=== PATIENT | female | born 1935 | race Caucasian/White ===

== ENCOUNTER 2017-10-22 07:05 | Inpatient (IN) | payer OTHER, MEDICARE ==
[~2017-10-22] VITALS: Ht 162.6 cm; Wt 49.1 kg
[~2017-10-22 07:05] MED LIST: ADVAIR 250-501 EACH INH; AFRIN15 ML NASB; CALCIUM CARBON500 M2 PO; CARVEDILOL25 M1 PO; CLOPIDOGREL75 M1 PO; DIFLUCAN150 M1 PO; ESCITALOPRAM OX10 MG PO; FERROUS SULFAT325 M3 PO; HYDRALAZINE HCL25 M1 PO; IPRAT-ALBUT 0.5-3 ML PO; OXYCODONE HCL5 M1 PO; PANTOPRAZOLE SO40 M1 PO; RANEXA500 M1 PO; SENNA PLUS TAB1 EACH PO; VITAMIN B-121000 MC3 PO; VITAMIN D5000 UNIT PO
--- NOTE | 2017-10-22 07:15 | ED GENERAL ADULT ---
History of Present Illness General Chief Complaint: Dyspnea (COPD, CHF, Other) Stated Complaint: SOB SINCE LAST PM Source: patient, family Exam Limitations: no limitations Vital Signs & Intake/Output Vital Signs & Intake/Output Vital Signs Date Time Temp Pulse Resp B/P B/P Pulse O2 O2 Flow FiO2 Mean Ox Delivery Rate 10/22 1832 65 144/88 10/22 1546 62 190/88 10/22 1426 98.4 62 18 190/88 96 Nasal Cannula 10/22 1400 95 Nasal 2.0L Cannula 10/22 1315 99.2 74 18 180/92 96 Nasal 2.0L Cannula 10/22 1200 99.9 70 20 168/90 94 Nasal 2.0L Cannula 10/22 1032 99.9 69 22 158/82 95 Nasal 2.0L Cannula 10/22 0911 98.0 74 20 143/90 95 10/22 0759 Nasal 2.0L Cannula 10/22 0755 99.0 70 160/84 10/22 0755 97 Room Air Room Air The patient was placed on a monitor and oxygen. An albuterol Atrovent nebulizer ordered. Chest x-ray and labs were ordered. EKG shows paced beats. Her mail clerk is Dr. Solomon. Her primary care doctor is Dr. Rojo. Her vascular surgeon is Dr. Whitley. Allergies Coded Allergies: amoxicillin (Mild, NAUSEA, ABDOMINAL PAIN 11/18/15) Reconcile Medications Carvedilol 25 MG TABLET 1 TAB PO BID HEART (Reported) Cholecalciferol (Vitamin D3) (Vitamin D) 5,000 UNIT TABLET 1 TAB PO DAILY SUPPLEMENT (Reported) Clopidogrel Bisulfate (Clopidogrel) 75 MG TABLET 1 TAB PO QPM BLOOD THINNER ( Reported) Cyanocobalamin (Vitamin B-12) 1,000 MCG TABLET 1 TAB PO DAILY SUPPLEMENT ( Reported) Escitalopram Oxalate 10 MG TABLET 1 TAB PO DAILY MENTAL HEALTH (Reported) Ferrous Sulfate 325 MG (65 MG IRON) TABLET 1 TAB PO BID IRON, VITAMIN ( Reported) Fluticasone/Salmeterol (Advair 250-50 Diskus) 1 EACH BLST.W.DEV 1 PUF INH BID BREATHING PROBLEMS (Reported) Hydralazine HCl 25 MG TABLET 3 TAB PO BID HEART (Reported) Mirtazapine 7.5 MG TABLET 1 TAB PO QPM SLEEP (Reported) Pantoprazole Sodium 40 MG TABLET.DR 1 TAB PO DAILY GI (Reported) Ranolazine (Ranexa) 500 MG TAB.ER.12H 1 TAB PO 1700 CHEST PAIN (Reported) Simvastatin (Simvastatin*) 40 MG TABLET 1 TAB PO QPM CHOLESTEROL (Reported) Triage Note: C/O SOB SINCE LAST PM, Triage Nurses Notes Reviewed? yes Onset: Abrupt Duration: hour(s): Timing: recent history HPI: 10/22/17 7:30 AM 82-year-old female presents to the emergency department complaining of difficulty breathing. According to the patient she was in her usual state of health until last night when she developed progressive shortness of breath. She also admits to mild chest pain and occasional cough. No fever. She does admit to orthopnea. She did use her albuterol nebulizer this morning with little relief. Past History Travel History Traveled to [place] past 21 day No Medical History Any Pertinent Medical History? see below for history Neurological: intracranial bleed Cardiovascular: CAD, myocardial infarction Other Medical Hx: chronic pain Surgical History Surgical History: pacemaker Psychosocial History Who do you live with Significant Other What is your primary language Guamanian Tobacco Use: Current Daily Use Daily Tobacco Use Amount/Type: =< 4 Cigarettes daily ETOH Use: occasional use Family History Hx Contributory? No Review of Systems Review of Systems Constitutional: Denies: fever. EENTM: Reports: no symptoms. Respiratory: Reports: cough, short of breath. Cardiovascular: Reports: chest pain. GI: Denies: abdominal pain. Genitourinary: Reports: no symptoms. Musculoskeletal: Reports: joint pain. Skin: Reports: no symptoms. Neurological/Psychological: Reports: no symptoms. Hematologic/Endocrine: Reports: no symptoms. Immunologic/Allergic: Reports: no symptoms. Physical Exam Physical Exam General Appearance: alert, awake, anxious, moderate distress Head: atraumatic, normal appearance Eyes: Bilateral: normal appearance, PERRL, EOMI. Ears, Nose, Throat: normal ENT inspection Neck: normal inspection Respiratory: decreased breath sounds Cardiovascular: oCCASIONAL IRREGULAR BEATS Peripheral Pulses: 4+ radial (R), 4+ radial (L) Gastrointestinal: non-tender Back: decreased range of motion Extremities: no edema Neurologic/Psych: no motor/sensory deficits, awake, alert, oriented x 3 Skin: intact, normal color, warm/dry Core Measures ACS in differential dx? Yes CVA/TIA Diagnosis: No Sepsis Present: No Sepsis Focused Exam Completed? No Progress Differential Diagnoses I considered the following diagnoses in my evaluation of the patient: [Acute coronary syndrome, congestive heart failure, pneumonia, peripheral vascular disease, pulmonary embolism, COPD exacerbation, pulmonary hypertension] Plan of Care: Orders Procedure Date/time Status Heart Healthy Diet 10/22 L Complete Heart Healthy Diet 10/22 D Active TROPONIN LEVEL 10/22 1800 Active EKG 10/22 1800 Active CULTURE,URINE 10/22 1643 Active URINALYSIS 10/22 1642 Complete Weight 10/22 1352 Active Vital Signs 10/22 1352 Active Teach/Educate 10/22 1352 Active Pain Treatment and Response 10/22 1352 Active Nutritional Intake, Monitor 10/22 1352 Active Isolation 10/22 1352 Active Intake & Output 10/22 1352 Active Patient Care Conference 10/22 1352 Active Activity/Ambulation 10/22 1352 Active Pathway - chart 10/22 1254 Active TRC EVALUATION (GEN) 10/22 1244 Active OXYGEN SETUP (GEN) 10/22 1244 Active Pathway - chart 10/22 1244 Active House Staff 10/22 1244 Active Code Status 10/22 1244 Active THYROID STIMULATING HORMONE 10/22 1109 Complete FREE T4 10/22 1109 Complete TROPONIN LEVEL 10/22 1100 Complete EKG 10/22 1100 Active Patient Data 10/22 1058 Active ED Holding Orders 10/22 1053 Active Admit to inpatient 10/22 1053 Active Vital Signs 10/22 1053 Active Code Status 10/22 1053 Complete Saline Lock 10/22 0833 Active OXYGEN SETUP (GEN) 10/22 0744 Active MISTAKE 10/22 0744 Active TROPONIN LEVEL 10/22 0730 Complete D-DIMER 10/22 0730 Complete COMPREHENSIVE METABOLIC PANEL 10/22 0730 Complete CBC WITHOUT DIFFERENTIAL 10/22 0730 Complete B-TYPE NATRIURETIC PEP (BNP) 10/22 0730 Complete EKG 10/22 0718 Active Lab Add-on Test 10/22 UNK Active VTE Mechanical Prophylaxis 10/22 UNK Active Straight Cath 10/22 UNK Active Intake & Output 10/22 UNK Active Dean, Insertion/Removal/Asses 10/22 UNK Complete Elevate 10/22 UNK Active Current Medications Sig/Bhupendra Start time Last Medication Dose Stop Time Status Admin Carvedilol 12.5 MG BID 10/22 2100 AC (Coreg) Clopidogrel Bisulfate 75 MG QPM 10/22 2100 AC (Plavix) Hydralazine HCl 75 MG BID 10/22 2100 AC (Apresoline) Mirtazapine 7.5 MG QPM 10/22 2100 AC (Remeron) Atorvastatin Calcium 20 MG 1700 10/22 1700 AC 10/22 (Lipitor) 1546 Ranolazine 500 MG 1700 10/22 1700 AC 10/22 (Ranexa) 1546 Furosemide 20 MG DAILY 10/22 1329 AC 10/22 (Lasix) 1540 Acetaminophen 650 MG Q6P PRN 10/22 1300 AC (Tylenol) Acetaminophen 1,000 MG Q6P PRN 10/22 1300 AC (Ofirmev) Morphine Sulfate 1 MG Q2P PRN 10/22 1300 AC (Morphine) Enoxaparin Sodium 40 MG DAILY 10/22 1244 AC 10/22 (Lovenox) 1312 Budesonide/ 2 PUF BID 10/22 1239 AC 10/22 Formoterol Fumarate 1540 (Symbicort) Escitalopram Oxalate 10 MG DAILY 10/22 1239 AC 10/22 (Lexapro) 1540 Laboratory Tests 10/22/17 1845: Troponin I Pending 10/22/17 1650: Urine Color YEL, Urine Clarity HAZY H, Urine pH 6.0, Ur Specific Brogue 1.015, Urine Protein 100 H, Urine Ketones NEG, Urine Nitrite NEG, Urine Bilirubin NEG, Urine Urobilinogen 0.2, Ur Leukocyte Esterase TRACE H, Ur Microscopic SEDIMENT EXAMINED, Urine WBC 15-25 H, Ur Epithelial Cells FEW, Urine Bacteria MANY H, Urine Hemoglobin NEG, Urine Glucose NEG 10/22/17 1109: Troponin I 0.07, TSH 1.380, Free T4 1.51 10/22/17 0749: Anion Gap 12, Estimated GFR 53 L, BUN/Creatinine Ratio 25.0, Glucose 91, Calcium 8.9, Total Bilirubin 0.8, AST 20, ALT 17, Alkaline Phosphatase 64, Troponin I 0.08, Ssn-C-Hirgpunyriv Pept 23928 H, Total Protein 6.4, Albumin 3.3 L, Globulin 3.1, Albumin/Globulin Ratio 1.1, D-Dimer High Sensitivty 3520 H, CBC w Diff NO MAN DIFF REQ, RBC 3.38 L, MCV 94.8, MCH 32.8 H, MCHC 34.6, RDW 13.7, MPV 7.9, Gran % 82.5 H, Lymphocytes % 11.9 L, Monocytes % 4.7, Eosinophils % 0.4, Basophils % 0.5, Absolute Granulocytes 5.2, Absolute Lymphocytes 0.8 L, Absolute Monocytes 0.3, Absolute Eosinophils 0, Absolute Basophils 0 Microbiology 10/22 1650 URINE ROUT: Urine Culture - RECD CXR Impression: pulmonary vascular congestion Initial ED EKG: pacemaker rhythm Departure Departure Disposition: STILL A PATIENT Condition: Stable Clinical Impression Primary Impression: Dyspnea Secondary Impressions: CHF (congestive heart failure) Referrals: Robbi Rojo MD (PCP/Family) Departure Forms: Customer Survey General Discharge Information Admission Note Spoke With: Marley Hendrix MD Documentation of Exam: Documentation of any treatments & extenuating circumstances including Concerns Regarding Discharge (functional status, medication knowledge or non-compliance, living conditions, etc.) that warrant an admission rather than observation: [The patient needs admission for IV diuresis, oxygen, serial troponins, cardiology consultation] Critical Care Note Critical Care Note Critical Care Time: non-applicable
[2017-10-22 08:17] LABS: ABSOLUTE BASOPHIL COUNT 0 /CUMM (0.0-0.2); ABSOLUTE EOSINOPHIL COUNT 0 /CUMM (0.0-0.7); ABSOLUTE GRANULOCYTE CT 5.2 /CUMM (1.4-6.5); ABSOLUTE LYMPH COUNT 0.8 /CUMM (1.2-3.4); ABSOLUTE MONOCYTE COUNT 0.3 /CUMM (0.10-0.60); BASOPHIL % 0.5 % (0.0-2.0); EOSINOPHIL % 0.4 % (0-5); MEAN CORPUSCULAR HGB 32.8 PG (27.0-31.0); MEAN CORPUSCULAR HGB CONC 34.6 G/DL (33.0-37.0); MEAN CORPUSCULAR VOLUME 94.8 FL (81.0-99.0); MEAN PLATELET VOLUME 7.9 FL (7.4-10.4); RBC DISTRIBUTION WIDTH 13.7 % (11.5-14.5); RED BLOOD CELL CT 3.38 /CUMM (4.20-5.40); WHITE BLOOD CELL COUNT 6.3 /CUMM (4.8-10.8)
--- NOTE | 2017-10-22 08:30 | RADIOLOGY REPORT ---
EXAMINATION: XR PORTABLE CHEST CLINICAL INFORMATION: Shortness of breath. COMPARISON: 12/16/2010 TECHNIQUE: Portable frontal view of the chest was obtained. Cardiac silhouette and left lung base are obscured by the patient's left wrist and hand. FINDINGS: Dual-lead pacemaker is unchanged. Sternal wires and surgical clips overlie the cardiac and mediastinal contours. Cardiac silhouette is enlarged. Mild pulmonary venous congestion. No focal consolidation is identified. No pleural effusion or pneumothorax. Evaluation of the left lung base is obscured by the overlying hand and wrist. Bones are osteopenic. Degenerative arthritis is present at the acromioclavicular and right glenohumeral joints. Degenerative disc disease present in the thoracolumbar spine. IVC filter is noted in the right mid abdomen. Kyphoplasty cement is present in the lumbar spine. IMPRESSION: Borderline cardiomegaly with mild pulmonary venous congestion. No focal consolidation, though assessment of the left lung base is limited by the overlying left hand and wrist. Consider follow-up nonportable PA and lateral radiographs when able.
[2017-10-22 08:38] LABS: GRANULOCYTE % 82.5 % (42.2-75.2); PLATELET COUNT 109 /CUMM (130-400)
[2017-10-22] MEDS ORDERED: MIRTAZAPINE7.5 M1 PO (08:53)
[2017-10-22] MEDS ORDERED: SIMVASTATIN40 M1 PO (08:53)
--- NOTE | 2017-10-22 11:51 | CT SCAN REPORT ---
EXAMINATION: CT ANGIOGRAM OF THE CHEST WITH AND WITHOUT CONTRAST (CT PULMONARY ANGIOGRAM FOR PE) CLINICAL INFORMATION: Presumptive Dx: SOB Signs Symptoms: SOB COMPARISON: Radiographs from the same date and CT abdomen pelvis dated 12/16/2010 TECHNIQUE: Prior to contrast administration, noncontrast localization images were obtained. Subsequently, multidetector volumetric imaging was performed from the thoracic inlet to below the diaphragms following the administration of 95 mL Optiray 320 intravenous contrast. No contrast reaction reported. Sagittal, coronal, and MIP oblique sagittal reformatted images were obtained on the CT workstation, uploaded to PACS, and reviewed. Total exam dose-length product 227 mGy-cm. FINDINGS: QUALITY OF STUDY/CONTRAST BOLUS: Satisfactory PULMONARY ARTERIES: No central or segmental pulmonary emboli. There is borderline dilatation of the left main pulmonary artery (3 cm). THORACIC AORTA: Calcific atherosclerosis is present with mid thoracic aorta. There is diffuse ectasia of the descending thoracic aorta, measuring up to 3.5 cm in diameter. There is focal saccular dilatation of the descending thoracic ureter as seen on image 356/537 of series 2. The aorta measures 4.3 cm in diameter in this region. Additional atherosclerotic disease and ectasia are identified in the infrarenal abdominal aorta sensitivity for dissection is limited on these images as contrast material has not yet reached the thoracic aorta and significant concentration. LUNG: There is a 0.9 cm solid juxtapleural pulmonary nodule in the right upper lobe on image 100/57 of series 2. Additionally, there is a 2.8 x 2.8 x 2.3 cm focus of hazy reticular groundglass attenuation and internal cystic changes in the posterior aspect of the right upper lobe (image 210/537 of series 2). A more reticular solid nodular focus is present just the anteromedial to this, measuring 0.8 cm on image 173/537 of series 2. Dependent atelectasis is present in the lower lobes and lingula. No focal consolidation. Minimal centrilobular edema. Central airways are clear. PLEURA: Trace right pleural effusion. MEDIASTINUM: Mild cardiomegaly. Calcific atherosclerosis is present in the coronary arteries. Postsurgical changes of prior CABG are evident. Pacemaker leads terminate in the right ventricle and right atrium. Calcific atherosclerosis and a stent are present in the left subclavian artery. No evidence of septal bowing or right heart strain. CHEST WALL/AXILLA: No axillary or internal mammary lymphadenopathy. OSSEOUS STRUCTURES: Multilevel degenerative disc disease is present in the thoracolumbar spine. Chronic compression fractures are present at L1 and L2 vertebroplasty cement. UPPER ABDOMEN: Again seen is a hyperdense cyst in the anterior aspect of the left kidney. Multiple quadrant synovial cysts are present bilaterally. Small radiodense calculi are present in the gallbladder. Splenules are present in the lateral splenic margin. Significant calcific atherosclerosis is present in the abdominal aorta. No reflux of contrast into the hepatic veins to suggest elevated right heart pressures. IMPRESSION: 1. No evidence of pulmonary emboli. 2. Cardiomegaly with mild pulmonary vascular congestion. No significant pulmonary edema. 3. A solid 0.9 cm right upper lobe pulmonary nodule. According to the UPDATED 2017 Fleischner Society recommendations, a CT, PET/CT, or tissue sampling at 3 months can be considered for further follow-up. Given the presence of and additional 2.8 cm subsolid cystic/groundglass abnormality in the posterior aspect of the right upper lobe, consider the follow-up CT or PET/CT in 3 months to also evaluate this abnormality. 4. 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 5. Marked calcific atherosclerosis in the thoracic aorta, superior arteries, and coronary arteries. Status post CABG. VTE: negative
--- NOTE | 2017-10-22 12:36 | History & Physical ---
Mehdi Franco 10/22/17 1236: General Information and HPI MD Statement: I have seen and personally examined MAIA BYRD and documented this H&P. The patient is a 82 year old F who presented with a patient stated chief complaint of [shortness of breath]. Source of Information: patient Exam Limitations: poor historian History of Present Illness: 82-year-old woman presented to emergency department with worsening shortness of breath. Patient is a poor historian and does not recollect the details of her health care. Briefly, this is a active smoker; Community dweller ; with past medical history of hypertension, hyperlipidemia and dual-chamber pacemaker placements (last year at [facility] by Dr. Bridges for an unknown reason). During her last visit with Dr. Odom about a month ago she had an echo in the office and according to patient that visit was uneventful. She has been compliant with her diet and medication. At her baseline she is an active individual, but for the past 3 weeks she felt extremely tired and was forced to take frequent naps during the day. Her exercise tolerance was decreased. Her physical deconditioning and exertion gradually worsens over the span of 3 weeks. Patient denies any associated symptoms of peripheral edema, shortness of breath, right upper quadrant discomfort, increased abdominal girth. Last night patient did not feel well, loss of appetite and did not eat dinner. She went to bed earlier but according to patient she started feeling short of breath while she was in bed. She reported increased work of breathing but denies any chest pain, palpitation. She denies any recent URI, sick contacts, travel. She was not able to sleep due to severe respiratory distress and increased work of breathing and came to the emergency room in the a.m. for further assessment. Allergies/Medications Allergies: Coded Allergies: amoxicillin (Mild, NAUSEA, ABDOMINAL PAIN 11/18/15) Home Med list Carvedilol 25 MG TABLET 1 TAB PO BID HEART (Reported) Cholecalciferol (Vitamin D3) (Vitamin D) 5,000 UNIT TABLET 1 TAB PO DAILY SUPPLEMENT (Reported) Clopidogrel Bisulfate (Clopidogrel) 75 MG TABLET 1 TAB PO QPM BLOOD THINNER ( Reported) Cyanocobalamin (Vitamin B-12) 1,000 MCG TABLET 1 TAB PO DAILY SUPPLEMENT ( Reported) Escitalopram Oxalate 10 MG TABLET 1 TAB PO DAILY MENTAL HEALTH (Reported) Ferrous Sulfate 325 MG (65 MG IRON) TABLET 1 TAB PO BID IRON, VITAMIN ( Reported) Fluticasone/Salmeterol (Advair 250-50 Diskus) 1 EACH BLST.W.DEV 1 PUF INH BID BREATHING PROBLEMS (Reported) Hydralazine HCl 25 MG TABLET 3 TAB PO BID HEART (Reported) Mirtazapine 7.5 MG TABLET 1 TAB PO QPM SLEEP (Reported) Pantoprazole Sodium 40 MG TABLET.DR 1 TAB PO DAILY GI (Reported) Ranolazine (Ranexa) 500 MG TAB.ER.12H 1 TAB PO 1700 CHEST PAIN (Reported) Simvastatin (Simvastatin*) 40 MG TABLET 1 TAB PO QPM CHOLESTEROL (Reported) Compliance With Home Meds: GOOD Past History Travel History Traveled to [place] past 21 day No Medical History Neurological: intracranial bleed Cardiovascular: CAD, cardiomyopathy Respiratory: COPD Psychiatric: anxiety, depression Other Medical Hx: chronic pain Surgical History Surgical History: pacemaker Past Family/Social History Psychosocial History ETOH Use: occasional use Functional Ability ADLs Independent: dressing, eating, toileting, bathing. Ambulation: independent IADLs Independent: shopping, housework, finances, food prep, telephone, transportation , medication admin. Review of Systems Review of Systems Constitutional: Reports: see HPI. Respiratory: Reports: short of breath. Denies: cough, hemoptysis, orthopnea, sputum production, stridor, wheezing. GI: Reports: see HPI. Exam & Diagnostic Data Last 24 Hrs of Vital Signs/I&O Vital Signs Date Time Temp Pulse Resp B/P B/P Pulse O2 O2 Flow FiO2 Mean Ox Delivery Rate 10/22 1315 99.2 74 18 180/92 96 Nasal 2.0L Cannula 10/22 1200 99.9 70 20 168/90 94 Nasal 2.0L Cannula 10/22 1032 99.9 69 22 158/82 95 Nasal 2.0L Cannula 10/22 0911 98.0 74 20 143/90 95 10/22 0759 Nasal 2.0L Cannula 10/22 0755 99.0 70 160/84 10/22 0755 97 Room Air Room Air Intake & Output 10/22 1600 10/22 0800 10/22 0000 Intake Total Output Total Balance Patient 110 lb Weight Weight Reported by Patient Measurement Method Physical Exam General Appearance Alert, Oriented X3, Cooperative, No Acute Distress HEENT mucous membranes are dry Neck no JVD Hepatojugular reflux is negative Cardiovascular Normal S1, Normal S2, No Murmurs, absence of S3 Lungs decreased breath sounds at base of the lungs b/l, no wheezing Abdomen Soft Neurological Normal Speech Extremities No Cyanosis, No Edema Vascular Normal Pulses Last 24 Hrs of Labs/Grupo: Laboratory Tests 10/22/17 1109: Troponin I 0.07 10/22/17 0749: Anion Gap 12, Estimated GFR 53 L, BUN/Creatinine Ratio 25.0, Glucose 91, Calcium 8.9, Total Bilirubin 0.8, AST 20, ALT 17, Alkaline Phosphatase 64, Troponin I 0.08, [id number] Pept 85441 H, Total Protein 6.4, Albumin 3.3 L, Globulin 3.1, Albumin/Globulin Ratio 1.1, D-Dimer High Sensitivty 3520 H, CBC w Diff NO MAN DIFF REQ, RBC 3.38 L, MCV 94.8, MCH 32.8 H, MCHC 34.6, RDW 13.7, MPV 7.9, Gran % 82.5 H, Lymphocytes % 11.9 L, Monocytes % 4.7, Eosinophils % 0.4, Basophils % 0.5, Absolute Granulocytes 5.2, Absolute Lymphocytes 0.8 L, Absolute Monocytes 0.3, Absolute Eosinophils 0, Absolute Basophils 0 Diagnostic Data EKG Results DDD: Atrial sensing ventricular pacing; with PVCs CXR Results Borderline cardiomegaly with mild pulmonary venous congestion. No focal consolidation, though assessment of the left lung base is limited by the overlying left hand and wrist. Consider follow-up nonportable PA and lateral radiographs when able. Assessment/Plan Assessment: 82-year-old woman with significant past medical history of coronary artery disease (evidence of atherosclerosis in CT scan), hypertension and hyperlipidemia was admitted for hypoxic respiratory failure most possibly secondary to decompensation of heart failure. Pertinent findings: Blood counts normal; sodium 141, potassium 4.5, BUN 25, creatinine 1, proBNP 34, 100; d-dimer 3520. Wells score: 0 First set of troponin 0.08 seconds set of troponin less than 0.01 third set of troponin is pending at 6 PM Chest x-ray: Mild cardiomegaly and mild pulmonary congestion CTA of the chest: No evidence of pulmonary embolism consolidation infiltration; mild pleural effusion in the right side huge LVH and evidence of mild pulmonary congestion. Differential diagnosis: #1 acute decompensated heart failure: Increased pretest probability a significant rise in proBNP, evidence of pulmonary congestion. Decrease pretest probability: Absence of S3/S4; absence of JVD and absence of orthopnea; absence of increasing girth and peripheral edema. This patient may not be in overt fluid overload however she is clinically very dry, which may change the clinical presentation. Hyppthyroidism and acute coronary syndrome is to be ruled out. Patient recently had an echo in Dr. Keon Lugo's office and we will hold off doing a new echo waiting for the medical records. #2 COPD exacerbation: No finding physical exam evidence of COPD flare. #3 aortic dissection: Rule out with a normal CTA #4 pulmonary embolism: Very low pretest probability; d-dimer was initially not indicated. However, CT was obtained and it was negative. Plan * Admit to telemetry and tenuous heart monitoring * Trending troponin sets set at 6 PM * Lasix 20 mg IV daily * Insert Dean catheter; strict ins and outs list for 24-hour and daily weights; encourage by mouth intake fluid restriction 1000 ML * Check electrolytes daily * Decrease carvedilol to 12.5 mg by mouth twice a day * Continue hydralazine 75 mg by mouth twice a day (I spoke with Dr. Jones for now we are using hydralazine as vasodilator) * Do not repeat echo for now since patient had in recent echo in Dr. Merida's office ( Farhat Dolan MD will see her tomorrow and will make the final decision) * Check TSH * TRC/ NEBulizer as needed * Advair 250/50 * Ipratropium 2.5 mL every 6 as needed * Continue her home dose of citalopram Lovenox 40 units subcutaneous daily for DVT prophylaxis I have a discussion with the patient regarding her CODE STATUS for now she wants to be full code however her previous living will with her primary care is documented as DNR/DNI House a staffing orders As Ranked By This Provider Problem List: 1. Heart failure 2. Dyspnea Core Measures/Misc (02/24) Acute Coronary Syndrome ACS Diagnosis: No Congestive Heart Failure Congestive Heart Failure Diagnosis Yes Comment unknown ejection fraction Cerebrovascular Accident CVA/TIA Diagnosis: No VTE (View Protocol) VTE Risk Factors CHF or Resp Failure No Mechanical VTE Prophylaxis d/t N/A MechProphylax Ordered No VTE Pharm Prophylaxis d/t NA PharmProphylax ordered Sepsis (View protocol) Sepsis Present: No Resident Review Statement Resident Statement: examined this patient, discussed with manufacturing intern, agreed with manufacturing intern, discussed with family, reviewed EMR data (avail), discussed with nursing , discussed with case mgmt, reviewed images, amended to note Melissa Ramirez 10/22/17 1305: Attending MD Review Statement Attending Statement Attending MD Statement: examined this patient, discuss w/resident/PA/FUN HOUSE OPERATOR, agreed w/resident/PA/FUN HOUSE OPERATOR, discussed with family, reviewed EMR data (avail), discussed with nursing, discussed with case mgmt, reviewed images, amended to note Attending Assessment/Plan: 82 o/f presents with fatigue and sudden onset of shortness of breath with chest pain with labs elevated d dimer and CTA negaive for PE. Patient found to have pulmonary vascular congestion and hypoxic respiratroy failure 5l oxyegn on arrival now improved. Patient now feeling better. Patient also found to have uncontrolled [place]. [place]np [id number] 2/2 CHF exaecrbation. Chest xray with mild pulmonary vascular congestion. Serial cardiac enzymes, ECHO if not done recently, iv lasix, Obtain previosu records, monitor I/O, daily weights, Cardiology consult. gi/dvt prophylaxis full code.
[2017-10-22 14:26] VITALS: BP 190/88
[2017-10-22 18:32] VITALS: BP 144/88
[2017-10-22 23:16] VITALS: BP 176/70
[2017-10-23 06:58] VITALS: BP 140/88
[2017-10-23 09:22] LABS: ABSOLUTE BASOPHIL COUNT 0 /CUMM (0.0-0.2); ABSOLUTE EOSINOPHIL COUNT 0.1 /CUMM (0.0-0.7); ABSOLUTE MONOCYTE COUNT 0.4 /CUMM (0.10-0.60)
[2017-10-23 09:37] LABS: ABSOLUTE GRANULOCYTE CT 2.4 /CUMM (1.4-6.5); ABSOLUTE LYMPH COUNT 0.7 /CUMM (1.2-3.4); BASOPHIL % 0.7 % (0.0-2.0); EOSINOPHIL % 1.5 % (0-5); GRANULOCYTE % 67.7 % (42.2-75.2); HEMATOCRIT 33.4 % (37-47); MEAN CORPUSCULAR HGB 32.8 PG (27.0-31.0); MEAN CORPUSCULAR HGB CONC 34.5 G/DL (33.0-37.0); MEAN CORPUSCULAR VOLUME 95.1 FL (81.0-99.0); MEAN PLATELET VOLUME 8.3 FL (7.4-10.4); RED BLOOD CELL CT 3.52 /CUMM (4.20-5.40)
[2017-10-23 09:45] LABS: WHITE BLOOD CELL COUNT 4.1 /CUMM (4.8-10.8)
--- NOTE | 2017-10-23 11:26 | Cons- Cardiology ---
General Information and HPI Consulting Request Date of Consult: 10/23/17 Requested By: Melissa Ramirez MD Reason for Consult: Shortness of breath Source of Information: patient, old records History of Present Illness: This is a pleasant 82-year-old female with a past medical history of coronary artery disease with prior CABG (occluded svg to rca), ischemic heart myopathy, heart block status post permanent pacemaker, peripheral arterial disease, carotid artery disease, hypertension, pulmonary embolism with prior IVC filter, and anemia who presents to [facility] with a chief complaint of some increased somnolence/fatigue in recent weeks; this was not associated with chest pain, dyspnea, or palpitations but she did have an episode of transient shortness of breath while in bed prior to admission. Denies orthopnea/ paroxysmal nocturnal dyspnea. Denies increasing edema. She does not take a regular diuretic as an outpatient. She denies prior hospitalizations for congestive heart failure. On my interview with her today she was resting comfortably without residual shortness of breath. Denies any headache, slurring of speech, productive cough, focal weakness, or visual changes. Denies syncope. Allergies/Medications Allergies: Coded Allergies: amoxicillin (Mild, NAUSEA, ABDOMINAL PAIN 11/18/15) Home Med List: Carvedilol 25 MG TABLET 1 TAB PO BID HEART (Reported) Cholecalciferol (Vitamin D3) (Vitamin D) 5,000 UNIT TABLET 1 TAB PO DAILY SUPPLEMENT (Reported) Clopidogrel Bisulfate (Clopidogrel) 75 MG TABLET 1 TAB PO QPM BLOOD THINNER ( Reported) Cyanocobalamin (Vitamin B-12) 1,000 MCG TABLET 1 TAB PO DAILY SUPPLEMENT ( Reported) Escitalopram Oxalate 10 MG TABLET 1 TAB PO DAILY MENTAL HEALTH (Reported) Ferrous Sulfate 325 MG (65 MG IRON) TABLET 1 TAB PO BID IRON, VITAMIN ( Reported) Fluticasone/Salmeterol (Advair 250-50 Diskus) 1 EACH BLST.W.DEV 1 PUF INH BID BREATHING PROBLEMS (Reported) Hydralazine HCl 25 MG TABLET 3 TAB PO BID HEART (Reported) Mirtazapine 7.5 MG TABLET 1 TAB PO QPM SLEEP (Reported) Pantoprazole Sodium 40 MG TABLET.DR 1 TAB PO DAILY GI (Reported) Ranolazine (Ranexa) 500 MG TAB.ER.12H 1 TAB PO 1700 CHEST PAIN (Reported) Simvastatin (Simvastatin*) 40 MG TABLET 1 TAB PO QPM CHOLESTEROL (Reported) Current Medications: Current Medications Sig/Bhupendra Start time Last Medication Dose Route Stop Time Status Admin Acetaminophen 650 MG Q6P PRN 10/22 1300 AC PO Acetaminophen 1,000 MG Q6P PRN 10/22 1300 AC IV Albuterol Sulfate 3 ML TID 10/22 2100 AC 10/23 INH 0840 Atorvastatin Calcium 20 MG 1700 10/22 1700 AC 10/22 PO 1546 Budesonide/ 2 PUF BID 10/22 1239 AC 10/23 Formoterol Fumarate INH 0911 Carvedilol 12.5 MG BID 10/22 2100 AC 10/23 PO 0910 Clopidogrel Bisulfate 75 MG QPM 10/22 2100 AC 10/22 PO 2028 Enoxaparin Sodium 0 .STK-MED ONE 10/22 1314 DC SC Enoxaparin Sodium 40 MG DAILY 10/22 1244 AC 10/23 SC 0914 Escitalopram Oxalate 10 MG DAILY 10/22 1239 AC 10/23 PO 0911 Furosemide 20 MG DAILY 10/22 1329 AC 10/23 IV 0910 Hydralazine HCl 75 MG BID 10/22 2100 AC 10/23 PO 0910 Mirtazapine 7.5 MG QPM 10/22 2100 AC 10/22 PO 2028 Morphine Sulfate 1 MG Q2P PRN 10/22 1300 AC IV Ranolazine 500 MG 0 10/22 1700 AC 10/22 PO 1546 Sodium Chloride 1,000 ML .Q20H 10/22 1245 DC IV Review of Systems Review of Systems: Review of systems as per HPI. The remainder of a 10 point review of systems was reviewed and was otherwise negative. Past History Travel History Traveled to [place] past 21 day No Medical History Blood Transfusion Hx: Yes Neurological: intracranial bleed EENT: cataracts Cardiovascular: CAD, cardiomyopathy Respiratory: COPD Gastrointestinal: NONE Hepatic: NONE Renal: NONE Musculoskeletal: LEFT THR LEFT TKR Psychiatric: anxiety, depression Endocrine: NONE Blood Disorders: NONE Cancer(s): NONE SPECIAL EDUCATION SECRETARY/Reproductive: NONE Other Medical Hx: chronic pain Surgical History Surgical History: pacemaker Psychosocial History Where Do You Live? Home Services at Home: Physical Therapy Smoking Status: Current Everyday Smoker ETOH Use: occasional use Functional Ability ADLs Independent: dressing, eating, toileting, bathing. Ambulation: independent IADLs Independent: shopping, housework, finances, food prep, telephone, transportation , medication admin. Exam & Diagnostic Data Vital Signs and I&O Vital Signs Date Time Temp Pulse Resp B/P B/P Pulse O2 O2 Flow FiO2 Mean Ox Delivery Rate 10/23 0910 140/88 10/23 0910 60 140/88 10/23 0841 94 Room Air Room Air 10/23 0658 97.5 60 16 140/88 97 Nasal 2.0L Cannula 10/23 0000 Nasal 2.0L Cannula 10/22 2316 98.1 93 18 176/70 97 Nasal Cannula 10/22 2207 Nasal 1.0L Cannula 10/22 2026 98.4 65 20 148/88 10/22 202 98.4 65 20 148/88 10/22 1832 65 144/88 10/22 1546 62 190/88 10/22 1426 98.4 62 18 190/88 96 Nasal Cannula 10/22 1400 95 Nasal 2.0L Cannula 10/22 1315 99.2 74 18 180/92 96 Nasal 2.0L Cannula 10/22 1200 99.9 70 20 168/90 94 Nasal 2.0L Cannula Intake & Output 10/23 1600 10/23 0800 10/23 0000 10/22 1600 10/22 0800 10/22 0000 Intake Total 100 240 Output Total 200 100 400 Balance -200 0 -160 Intake, Oral 100 240 Output, Urine 200 100 400 Patient 107 lb 110 lb 110 lb Weight Weight Reported by Patient Measurement Method Physical Exam: General: no apparent distress. Alert. Eyes: No obvious scleral icterus. HEENT: No jugular venous distention or abnormal jugular venous pulsations. Cardiovascular: Normal intensity S1/S2. Pacemaker noted. 1 out of 6 systolic murmur Respiratory: Lungs clear to auscultation bilaterally. Abdomen: Soft, nontender with no guarding or rebound tenderness. Musculoskeletal: No clubbing or cyanosis noted; no edema Skin: warm Neurologic: No gross focal deficits noted. Lymph: No gross lymphadenopathy. Labs/Grupo Results: Laboratory Tests 10/23 10/22 0825 1845 Chemistry Sodium (137 - 145 mmol/L) 140 Potassium (3.5 - 5.1 mmol/L) 3.9 Chloride (98 - 107 mmol/L) 105 Carbon Dioxide (22 - 30 mmol/L) 26 Anion Gap (5 - 16) 8 BUN (7 - 17 mg/dL) 28 H Creatinine (0.5 - 1.0 mg/dL) 1.1 H Estimated GFR (>60 ml/min) 47 L BUN/Creatinine Ratio (7 - 25 %) 25.5 H Troponin I (< 0.11 ng/ml) 0.09 Hematology CBC w Diff NO MAN DIFF REQ WBC (4.8 - 10.8 /CUMM) 4.1 L RBC (4.20 - 5.40 /CUMM) 3.52 L Hgb (12.0 - 16.0 G/DL) 11.5 L Hct (37 - 47 %) 33.4 L MCV (81.0 - 99.0 FL) 95.1 MCH (27.0 - 31.0 PG) 32.8 H MCHC (33.0 - 37.0 G/DL) 34.5 RDW (11.5 - 14.5 %) 14.0 Plt Count (/CUMM) MPV (7.4 - 10.4 FL) 8.3 Gran % (42.2 - 75.2 %) 67.7 Lymphocytes % (20.5 - 51.1 %) 19.3 L Monocytes % (1.7 - 9.3 %) 10.8 H Eosinophils % (0 - 5 %) 1.5 Basophils % (0.0 - 2.0 %) 0.7 Absolute Granulocytes (1.4 - 6.5 /CUMM) 2.4 Absolute Lymphocytes (1.2 - 3.4 /CUMM) 0.7 L Absolute Monocytes (0.10 - 0.60 /CUMM) 0.4 Absolute Eosinophils (0.0 - 0.7 /CUMM) 0.1 Absolute Basophils (0.0 - 0.2 /CUMM) 0 10/22 10/22 1650 1109 Chemistry Troponin I (< 0.11 ng/ml) 0.07 TSH (0.270 - 4.200 uIU/mL) 1.380 Free T4 (0.85 - 1.93 ng/dL) 1.51 Urines Urine Color (YEL,AMB,STR) YEL Urine Clarity (CLEAR) HAZY H Urine pH (5.0 - 8.0) 6.0 Ur Specific [place] (1.001 - 1.035) 1.015 Urine Protein (NEG,<30 MG/DL) 100 H Urine Ketones (NEG) NEG Urine Nitrite (NEG) NEG Urine Bilirubin (NEG) NEG Urine Urobilinogen (0.1 - 1.0 EU/dl) 0.2 Ur Leukocyte Esterase (NEG) TRACE H Ur Microscopic SEDIMENT EXAMINED Urine WBC (0 - 2 /HPF) 15-25 H Ur Epithelial Cells (NONE,FEW) FEW Urine Bacteria (NEG/NONE) MANY H Urine Hemoglobin (NEG) NEG Urine Glucose (N MG/DL) NEG 10/22 0749 Chemistry Sodium (137 - 145 mmol/L) 141 Potassium (3.5 - 5.1 mmol/L) 4.5 Chloride (98 - 107 mmol/L) 108 H Carbon Dioxide (22 - 30 mmol/L) 21 L Anion Gap (5 - 16) 12 BUN (7 - 17 mg/dL) 25 H Creatinine (0.5 - 1.0 mg/dL) 1.0 Estimated GFR (>60 ml/min) 53 L BUN/Creatinine Ratio (7 - 25 %) 25.0 Glucose (65 - 99 mg/dL) 91 Calcium (8.4 - 10.2 mg/dL) 8.9 Total Bilirubin (0.2 - 1.3 mg/dL) 0.8 AST (14 - 36 U/L) 20 ALT (9 - 52 U/L) 17 Alkaline Phosphatase (<127 U/L) 64 Troponin I (< 0.11 ng/ml) 0.08 [id number]-[id number] Pept (<125 pg/mL) 25947 H Total Protein (6.3 - 8.2 g/dL) 6.4 Albumin (3.5 - 5.0 g/dL) 3.3 L Globulin (1.9 - 4.2 gm/dL) 3.1 Albumin/Globulin Ratio (1.1 - 2.2 %) 1.1 Coagulation D-Dimer High Sensitivty (0 - 243 ng/ml) 3520 H Hematology CBC w Diff NO MAN DIFF REQ WBC (4.8 - 10.8 /CUMM) 6.3 RBC (4.20 - 5.40 /CUMM) 3.38 L Hgb (12.0 - 16.0 G/DL) 11.1 L Hct (37 - 47 %) 32.0 L MCV (81.0 - 99.0 FL) 94.8 MCH (27.0 - 31.0 PG) 32.8 H MCHC (33.0 - 37.0 G/DL) 34.6 RDW (11.5 - 14.5 %) 13.7 Plt Count (130 - 400 /CUMM) 109 L MPV (7.4 - 10.4 FL) 7.9 Gran % (42.2 - 75.2 %) 82.5 H Lymphocytes % (20.5 - 51.1 %) 11.9 L Monocytes % (1.7 - 9.3 %) 4.7 Eosinophils % (0 - 5 %) 0.4 Basophils % (0.0 - 2.0 %) 0.5 Absolute Granulocytes (1.4 - 6.5 /CUMM) 5.2 Absolute Lymphocytes (1.2 - 3.4 /CUMM) 0.8 L Absolute Monocytes (0.10 - 0.60 /CUMM) 0.3 Absolute Eosinophils (0.0 - 0.7 /CUMM) 0 Absolute Basophils (0.0 - 0.2 /CUMM) 0 Diagnostic Data EKG Results Tracing was personally reviewed and shows AV pacing CXR Results Borderline cardiomegaly with mild pulmonary venous congestion. No focal consolidation, though assessment of the left lung base is limited by the overlying left hand and wrist. Consider follow-up nonportable PA and lateral radiographs when able. Other Results CTA: 1. No evidence of pulmonary emboli. 2. Cardiomegaly with mild pulmonary vascular congestion. No significant pulmonary edema. 3. A solid 0.9 cm right upper lobe pulmonary nodule. According to the UPDATED 2017 Fleischner Society recommendations, a CT, PET/CT, or tissue sampling at 3 months can be considered for further follow-up. Given the presence of and additional 2.8 cm subsolid cystic/groundglass abnormality in the posterior aspect of the right upper lobe, consider the follow-up CT or PET/CT in 3 months to also evaluate this abnormality. 4. 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 5. Marked calcific atherosclerosis in the thoracic aorta, superior arteries, and coronary arteries. Status post CABG. Telemetry tracings were personally reviewed and showed paced rhythm Assessment/Plan Assessment/Plan 1. Transient shortness of breath possibly due to mild CHF 2. 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 History of ischemic cardiomyopathy 4. History of heart block with permanent pacemaker 5. History of peripheral arterial disease/carotid artery disease 6. Hypertension 7. History of prior pulmonary embolism with reported prior IVC filter 8. History of anemia 9. History of dizziness with ARB therapy 10. Abdominal aortic aneurysm (4.[address] scan) Chest CT showed no pulmonary embolism. It showed only mild pulmonary vascular congestion but her BNP was significantly elevated. Shortness of breath has resolved and I would switch her to Lasix 20 mg p.o. daily. Would obtain an echocardiogram; if her ejection fraction remains low she may be a candidate for upgrade to biventricular AICD in the future as it appears she is pacer dependent. She has had dizziness with ARB therapy in the past and was also unable to tolerate Entresto in the past. Serial troponins are negative. Continue medical therapy for known coronary artery disease. Increase the carvedilol to 25 mill grams p.o. twice daily and if blood pressure tolerates would consider adding Imdur 30 mg p.o. daily. Vascular follow-up for abdominal aortic aneurysm. Eloy Dolan MD [facility] Consult Acknowledgment - Thank you for your consult request.
--- NOTE | 2017-10-23 13:55 | PN- Housestaff ---
Simeon DANIELS,Costa 10/23/17 1354: Subjective Follow-up For: shortness of breath Subjective: Saw pt at bedside this AM. No acute overnight events or complaints. She was pleasant and denied any shortness of breath. She said she felt well and was at her baseline. Review of Systems Constitutional: Denies: chills, fever, weakness. EENTM: Reports: no symptoms. Cardiovascular: Denies: chest pain, palpitations. Respiratory: Denies: short of breath. Gastrointestinal: Reports: no symptoms. Genitourinary: Reports: no symptoms. Musculoskeletal: Reports: no symptoms. Objective Last 24 Hrs of Vital Signs/I&O Vital Signs Date Time Temp Pulse Resp B/P B/P Pulse O2 O2 Flow FiO2 Mean Ox Delivery Rate 10/23 1433 98.3 63 16 128/64 96 Nasal Cannula 10/23 0910 140/88 10/23 0910 60 140/88 10/23 0841 94 Room Air Room Air 10/23 0800 95 Nasal 2.0L Cannula 10/23 0658 97.5 60 16 140/88 97 Nasal 2.0L Cannula 10/23 0000 Nasal 2.0L Cannula 10/22 2316 98.1 93 18 176/70 97 Nasal Cannula 10/22 2207 Nasal 1.0L Cannula 10/22 2026 98.4 65 20 148/88 10/22 2027 98.4 65 20 148/88 10/22 1832 65 144/88 10/22 1546 62 190/88 Intake & Output 10/23 1600 10/23 0800 10/23 0000 Intake Total 120 100 Output Total 200 100 Balance 120 -200 0 Intake, Oral 120 100 Output, Urine 200 100 Patient 48.733 kg Weight Physical Exam General Appearance: Alert, Oriented X3, Cooperative, No Acute Distress Skin: No Significant Lesion HEENT: Atraumatic, PERRLA, EOMI Cardiovascular: Regular Rate, Normal S1, Normal S2, No Murmurs Lungs: Normal Air Movement Abdomen: Soft, No Tenderness Neurological: Cranial Nerves 3-12 NL Extremities: No Edema Current Medications: Current Medications Sig/Bhupendra Start time Last Medication Dose Route Stop Time Status Admin Acetaminophen 650 MG Q6P PRN 10/22 1300 AC PO Acetaminophen 1,000 MG Q6P PRN 10/22 1300 AC IV Albuterol Sulfate 3 ML TID 10/22 2100 AC 10/23 INH 1349 Atorvastatin Calcium 20 MG 1700 10/22 1700 AC 10/22 PO 1546 Budesonide/ 2 PUF BID 10/22 1239 AC 10/23 Formoterol Fumarate INH 0911 Carvedilol 25 MG BID 10/23 2100 AC PO Carvedilol 12.5 MG BID 10/22 2100 DC 10/23 PO 0910 Clopidogrel Bisulfate 75 MG QPM 10/22 2100 AC 10/22 PO 202 Enoxaparin Sodium 40 MG DAILY 10/22 1244 AC 10/23 SC 0914 Escitalopram Oxalate 10 MG DAILY 10/22 1239 AC 10/23 PO 0911 Furosemide 20 MG DAILY 10/24 0900 AC PO Furosemide 20 MG DAILY 10/22 1329 DC 10/23 IV 0910 Hydralazine HCl 75 MG BID 10/22 2099 AC 10/23 PO 0910 Melatonin 5 MG AT BEDTIME PRN 10/23 1345 AC PO Mirtazapine 7.5 MG QPM 10/22 2100 AC 10/22 PO 2027 Morphine Sulfate 1 MG Q2P PRN 10/22 1300 AC IV Ranolazine 500 MG 10/22 1700 AC 10/22 PO 1546 Last 24 Hrs of Lab/Grupo Results Last 24 Hrs of Labs/Mics: Laboratory Tests 10/23/17 0825: Anion Gap 8, Estimated GFR 47 L, BUN/Creatinine Ratio 25.5 H, CBC w Diff NO MAN DIFF REQ, RBC 3.52 L, MCV 95.1, MCH 32.8 H, MCHC 34.5, RDW 14.0, MPV 8.3, Gran % 67.7, Lymphocytes % 19.3 L, Monocytes % 10.8 H, Eosinophils % 1.5, Basophils % 0.7, Absolute Granulocytes 2.4, Absolute Lymphocytes 0.7 L, Absolute Monocytes 0.4, Absolute Eosinophils 0.1, Absolute Basophils 0 10/22/17 1845: Troponin I 0.09 10/22/17 1650: Urine Color YEL, Urine Clarity HAZY H, Urine pH 6.0, Ur Specific [place] 1.015, Urine Protein 100 H, Urine Ketones NEG, Urine Nitrite NEG, Urine Bilirubin NEG, Urine Urobilinogen 0.2, Ur Leukocyte Esterase TRACE H, Ur Microscopic SEDIMENT EXAMINED, Urine WBC 15-25 H, Ur Epithelial Cells FEW, Urine Bacteria MANY H, Urine Hemoglobin NEG, Urine Glucose NEG Microbiology 10/22 1650 URINE ROUT: Urine Culture - RES GRAM NEGATIVE RODS Assessment/Plan Assessment: This is an 82-year-old F with PMHx coronary artery disease, hypertension and hyperlipidemia who was admitted for CC hypoxic respiratory failure likely secondary to decompensation of heart failure given significantly elevated BNP and CXR with congestion.. PLAN: Acute decompensated heart failure: nml TFT, SOB much improved this AM. Trops negative. No EKG changes. CTA negative. No JVD on exam today. * Monitor telemetry * Switch to PO Lasix 20 mg * Insert Dean catheter * Strict ins and outs * Daily weights * Fluid restriction 1000 ML * Carvedilol to 25MG mg by mouth twice a day * Continue hydralazine 75 mg by mouth twice a day * Repeat ECHO * TRC/ NEBulizer as needed * Appreciate cardio consult Depression * Continue her home dose of citalopram Lovenox 40 units subcutaneous daily for DVT prophylaxis FC Problem List: 1. Heart failure Pain Ratin Pain Location: NONE Pain Goal: Remain pain free Pain Plan: NONE Tomorrow's Labs & Rationales: NONE Melissa Ramirez 10/24/17 1108: Attending MD Review Statement Attending Statement Attending MD Statement: examined this patient, discuss w/resident/PA/FINANCIAL INSTITUTION TREASURER, agreed w/resident/PA/FINANCIAL INSTITUTION TREASURER, discussed with family, reviewed EMR data (avail), discussed with nursing, discussed with case mgmt, reviewed images, amended to note
[2017-10-23 14:33] VITALS: BP 128/64
--- NOTE | 2017-10-23 19:29 | Patient Discharge Instructions ---
Discharge Instructions General Discharge Information You were seen/treated for: heart failure You had these procedures: diuresis Watch for these problems: 1. SOB 2. CP 3. Malaise 4. Inability to lay flat without shortness of breath Special Instructions: 1. Please follow up with your PCP in one week 2. Please follow up with your pipe bowls paint trimmer in one week 3. You had an incidental Finding of a solid 0.9 cm right upper lobe pulmonary nodule. You need a CT or PET scan for follow up of this abnormality in 3 months 4. 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 Diet Recommended Diet: low salt Activity Full Activity/No Limits: No Activity Self Limited: Yes Acute Coronary Syndrome Inclusion Criteria At DC or during hospital stay patient has or had the following: ACS DIAGNOSIS No Discharge Core Measures Meds if any: Prescribed or Continued at Discharge Meds if any: NOT Prescribed or Continued at Discharge Congestive Heart Failure Inclusion Criteria At DC or during hospital stay patient has or had the following: CHF DIAGNOSIS Yes Discharge Core Measures Meds if any: Prescribed or Continued at Discharge Meds if any: NOT Prescribed or Continued at Discharge Cerebrovascular accident Inclusion Criteria At DC or during hospital stay patient has or had the following: CVA/TIA Diagnosis No Discharge Core Measures Meds if any: Prescribed or Continued at Discharge Meds if any: NOT Prescribed or Continued at Discharge Venous thromboembolism Inclusion Criteria VTE Diagnosis No VTE Type NONE VTE Confirmed by (Test) NONE Discharge Core Measures - Per Current guidelines, there needs to be overlap - treatment for the first 5 days of Warfarin therapy. - If discharged on Warfarin prior to 5 days of - overlap therapy, the patient will need to be - assessed for post discharge needs including - *Post discharge parental anticoagulation - *Warfarin and/or parental anticoagulation education - *Follow up date to check INR post discharge At least 5 days overlap therapy as Inpatient No Meds if any: Prescribed or Continued at Discharge Note: Overlap Therapy is Warfarin and Anticoagulant Meds if any: NOT Prescribed or Continued at Discharge
[2017-10-23 22:08] VITALS: BP 120/70
[2017-10-24 05:52] VITALS: BP 170/76
--- NOTE | 2017-10-24 07:21 | ECHOCARDIOGRAM REPORT ---
MAIA BYRD Age: 82 : 1935 Gender: F Exam Date: 10/23/2017 19:20 Exam Location: [place] Ht (in): 64 Wt (lb): 107 BSA: 1.47 BP: 189 / 90 Ordering Physician: Milena Hendrix MD Referring Physician: Farhat Dolan M.D. Technologist: Latricia Barrett [facility] Room Number: 180-02 Indications: HEART FAILURE Rhythm: Other Technical Quality: fair FINDINGS Left Ventricle Normal size left ventricle. Left ventricular wall thickness moderately increased. Mildly abnormal left ventricular ejection fraction estimated at 35-40%. Hypokinetic inferior wall. [place]ach hypokinetic. Right Ventricle Normal right ventricular size and function. Catheter/pacemaker wire in the right ventricular cavity. Right Atrium Mild right atrial dilatation. Left Atrium Moderate left atrial dilatation. Mitral Valve Mild mitral annular calcification. Moderate thickening/calcification of the anterior mitral valve leaflet. Moderate mitral regurgitation. Aortic Valve Diffuse thickening (sclerosis) of the aortic valve cusps without reduced excursion. Tricuspid Valve Tricuspid valve is normal in structure and function. Mild tricuspid regurgitation. Right ventricular systolic pressure estimated to be at upper limits of normal at 25 mmHg. Pulmonic Valve Pulmonic valve not well visualized, grossly normal. Pericardium No pericardial effusion. Great Vessels Normal size aortic root. CONCLUSIONS Moderate reduction in left ventricular systolic function with moderate concentric hypertrophy. Segmental abnormalities consistent with Ischemic cardiomyopathy. Moderate Mitral regurgitation. Kirill Solomon M.D. (Electronically Signed) Final Date: 24 Oct 2017 07:20 MEASUREMENTS (Male / Female) Normal Values 2D ECHO LV Diastolic Diameter PLAX 4.4 cm 4.2 - 5.9 / 3.9 - 5.3 cm LV Systolic Diameter PLAX 3.2 cm 2.1 - 4.0 cm LV Fractional Shortening PLAX 27.3 % 25 - 46 % LV Ejection Fraction 2D Teich 53.3 % IVS Diastolic Thickness 1.6 cm LVPW Diastolic Thickness 1.6 cm LV Relative Wall Thickness 0.7 RV Internal Dim ED PLAX 2.3 cm 1.9 - 3.8 cm LVOT Diameter 1.9 cm Aortic Root Diameter 2.9 cm LA Systolic Diameter LX 5.0 cm 3.0 - 4.0 / 2.7 - 3.8 cm LA Volume 42.0 cm 18 - 58 / 22 - 52 cm DOPPLER AV Peak Velocity 119.0 cm/s AV Peak Gradient 5.7 mmHg AV Mean Velocity 84.7 cm/s AV Mean Gradient 3.0 mmHg AV Velocity Time Integral 23.9 cm LVOT Peak Velocity 106.0 cm/s LVOT Peak Gradient 4.5 mmHg LVOT Mean Velocity 74.3 cm/s LVOT Mean Gradient 3.0 mmHg LVOT Velocity Time Integral 19.2 cm LVOT Stroke Volume 54.4 cm AV Area Cont Eq vti 2.3 cm AV Area Cont Eq pk 2.5 cm MV Peak Velocity 110.0 cm/s MV Peak Gradient 4.8 mmHg MV Mean Velocity 59.6 cm/s MV Mean Gradient 2.0 mmHg Mitral E Point Velocity 47.4 cm/s Mitral A Point Velocity 84.4 cm/s Mitral E to A Ratio 0.6 MV PHT Velocity 73.6 cm/s MV Deceleration Arthur 244.0 cm/s MV Pressure Half Time 90.5 ms MV Area PHT 2.4 cm MV Deceleration Time 227.0 ms TR Peak Velocity 254.0 cm/s TR Peak Gradient 25.8 mmHg Right Atrial Pressure 5.0 mmHg Pulmonary Artery Systolic Pressu 30.8 mmHg Right Ventricular Systolic Press 30.8 mmHg PV Peak Velocity 120.0 cm/s PV Peak Gradient 5.8 mmHg PV Mean Velocity 78.3 cm/s PV Mean Gradient 3.0 mmHg PV Velocity Time Integral 20.6 cm LV E' Lateral Velocity 4.6 cm/s Mitral E to LV E' Lateral Ratio 10.3 LV E' Septal Velocity 3.9 cm/s Mitral E to LV E' Septal Ratio 12.2
--- NOTE | 2017-10-24 07:28 | PN- Housestaff ---
KelleMarycamila 10/24/17 0728: Subjective Follow-up For: SOB CHF EXACERBATION WEAKNESS Tele-Events Since Last Visit: A pacing, hr 60 no events Subjective: I have seen and examined the patient. She reports feeling weak and dizzy while walking. no cp, sob ro palpitations. patient still has cifuentes cath for I and Os. Review of Systems Constitutional: Reports: see HPI. Objective Last 24 Hrs of Vital Signs/I&O Vital Signs Date Time Temp Pulse Resp B/P B/P Pulse O2 O2 Flow FiO2 Mean Ox Delivery Rate 10/24 0901 59 170/76 10/24 0901 59 170/76 10/24 0811 93 Room Air Room Air 10/24 0552 97.6 59 20 170/76 96 10/23 2208 98.1 61 23 120/70 94 10/23 2038 98 Room Air Room Air 10/23 2029 60 144/70 10/23 2029 60 144/70 10/23 1617 62 180/90 10/23 1600 Nasal 2.0L Cannula 10/23 1433 98.3 63 16 128/64 96 Nasal Cannula Intake & Output 10/24 1600 10/24 0800 10/24 0000 Intake Total 480 Output Total 650 400 Balance -650 80 Intake, Oral 480 Number 0 Bowel Movements Output, Urine 650 400 Patient 48.279 kg Weight Physical Exam General Appearance: Alert, Oriented X3, Cooperative, No Acute Distress Other Physical Findings: Skin: No Significant Lesion HEENT: Atraumatic, PERRLA, EOMI Cardiovascular: Regular Rate, Normal S1, Normal S2, No Murmurs Lungs: Normal Air Movement Abdomen: Soft, No Tenderness Neurological: Cranial Nerves 3-12 NL Extremities: No Edema Current Medications: Current Medications Sig/Bhupendra Start time Last Medication Dose Route Stop Time Status Admin Acetaminophen 650 MG .STK-MED ONE 10/23 1609 DC PO 10/23 1610 Acetaminophen 650 MG Q6P PRN 10/22 1300 AC 10/23 PO 1614 Acetaminophen 1,000 MG Q6P PRN 10/22 1300 AC IV Albuterol Sulfate 3 ML TID 10/22 2100 AC 10/24 INH 0808 Atorvastatin Calcium 20 MG 1700 10/22 1700 AC 10/23 PO 1614 Budesonide/ 2 PUF BID 10/22 1239 AC 10/24 Formoterol Fumarate INH 0859 Carvedilol 25 MG BID 10/23 2099 AC 10/24 PO 09 Carvedilol 12.5 MG BID 10/22 2100 DC 10/23 PO 09 Clopidogrel Bisulfate 75 MG QPM 10/22 2099 AC 10/23 PO 2028 Enoxaparin Sodium 40 MG DAILY 10/22 1244 AC 10/24 SC 0900 Escitalopram Oxalate 10 MG DAILY 10/22 1239 AC 10/24 PO 0900 Furosemide 20 MG DAILY 10/24 0900 AC 10/24 PO 09 Furosemide 20 MG DAILY 10/22 1329 DC 10/23 IV 0910 Hydralazine HCl 75 MG BID 10/22 2099 AC 10/24 PO 09 Melatonin 5 MG AT BEDTIME PRN 10/23 1345 AC PO Mirtazapine 7.5 MG QPM 10/22 2099 AC 10/23 PO 2028 Morphine Sulfate 1 MG Q2P PRN 10/22 1300 AC IV Ranolazine 500 MG 1700 10/22 1700 AC 10/23 PO 1617 Last 24 Hrs of Lab/Grupo Results Last 24 Hrs of Labs/Mics: Laboratory Tests 10/24/17 0640: Anion Gap 10, Estimated GFR 39 L, BUN/Creatinine Ratio 26.9 H, CBC w Diff NO MAN DIFF REQ, RBC 3.49 L, MCV 96.0, MCH 32.5 H, MCHC 33.8, RDW 14.3, Gran % 69.7, Lymphocytes % 18.4 L, Monocytes % 10.3 H, Eosinophils % 1.3, Basophils % 0.3, Absolute Granulocytes 2.5, Absolute Lymphocytes 0.7 L, Absolute Monocytes 0.4, Absolute Eosinophils 0, Absolute Basophils 0 Assessment/Plan Assessment: This is an 82-year-old F with PMHx coronary artery disease, hypertension and hyperlipidemia who was admitted for CC hypoxic respiratory failure likely secondary to decompensation of heart failure given significantly elevated BNP and CXR with congestion. PLAN: Acute decompensated heart failure/dizzines: nml TFT, . Trops negative. No EKG changes. CTA negative. No JVD on exam today. * Monitor telemetry * PO Lasix 20 mg * cont Cifuentes catheter * pt eval and orthostatic vital signs * Strict ins and outs * Daily weights * Fluid restriction 1000 ML * Carvedilol to 25MG mg by mouth twice a day * Continue hydralazine 75 mg by mouth twice a day * Repeat ECHO ef 35-40% * TRC/ NEBulizer as needed * cardio consult rec candesartan however pharmacy only have diovan and losartan. patient thinks losartan makes her dizzy. so we gave diovan [address] Keon machuca (cardio) aware. * Depression * Continue her home dose of citalopram Lovenox 40 units subcutaneous daily for DVT prophylaxis FC Problem List: 1. Heart failure Problem List: 1. Dyspnea Pain Ratin Pain Location: no pain Pain Goal: Remain pain free Pain Plan: same Tomorrow's Labs & Rationales: cbc bep Melissa Ramirez 10/24/17 1109: Attending MD Review Statement Attending Statement Attending MD Statement: examined this patient, discuss w/resident/PA/WORKERS COMPENSATION ADMINISTRATOR, agreed w/resident/PA/WORKERS COMPENSATION ADMINISTRATOR, discussed with family, reviewed EMR data (avail), discussed with nursing, discussed with case mgmt, reviewed images, amended to note Attending Assessment/Plan: Patient today c/o dizziness. Cardiology appreciated. Trial of optimising medical management. She is reluctant to addition of some of her cardiac meds as she believes they cause dizziness. Check orthostasis and obtain PT consult. If candesartan not available in our pharmacy then continue with losartan. Her creatiine is slightly elevated with probable renal insufficiency. Monitor her hemodynamics and creatinine.
[2017-10-24 08:19] LABS: ABSOLUTE BASOPHIL COUNT 0 /CUMM (0.0-0.2); ABSOLUTE EOSINOPHIL COUNT 0 /CUMM (0.0-0.7); ABSOLUTE GRANULOCYTE CT 2.5 /CUMM (1.4-6.5); ABSOLUTE LYMPH COUNT 0.7 /CUMM (1.2-3.4); ABSOLUTE MONOCYTE COUNT 0.4 /CUMM (0.10-0.60); BASOPHIL % 0.3 % (0.0-2.0); EOSINOPHIL % 1.3 % (0-5); GRANULOCYTE % 69.7 % (42.2-75.2); HEMATOCRIT 33.5 % (37-47); MEAN CORPUSCULAR HGB 32.5 PG (27.0-31.0); MEAN CORPUSCULAR HGB CONC 33.8 G/DL (33.0-37.0); RBC DISTRIBUTION WIDTH 14.3 % (11.5-14.5); RED BLOOD CELL CT 3.49 /CUMM (4.20-5.40); WHITE BLOOD CELL COUNT 3.6 /CUMM (4.8-10.8)
--- NOTE | 2017-10-24 09:03 | PN- Cardiology ---
Subjective Subjective: Patient claims she is a little more short of breath today. She has a Dean catheter. Ambulating is minimal. Telemetry was reviewed. Nearly 100% paced rhythm. Objective Vital Signs and I&Os Vital Signs Date Time Temp Pulse Resp B/P B/P Pulse O2 O2 Flow FiO2 Mean Ox Delivery Rate 10/24 0811 93 Room Air Room Air 10/24 0552 97.6 59 20 170/76 96 10/23 2208 98.1 61 23 120/70 94 10/23 2038 98 Room Air Room Air 10/23 2028 60 144/70 10/23 2029 60 144/70 10/23 1617 62 180/90 10/23 1600 Nasal 2.0L Cannula 10/23 1433 98.3 63 16 128/64 96 Nasal Cannula 10/23 0910 140/88 10/23 0910 60 140/88 Intake & Output 10/24 1600 10/24 0800 10/24 0000 10/23 1600 10/23 0800 10/23 0000 Intake Total 480 120 100 Output Total 650 400 800 200 100 Balance -650 80 -680 -200 0 Intake, Oral 480 120 100 Number 0 Bowel Movements Output, Urine 650 400 800 200 100 Patient 106 lb 107 lb Weight Physical Exam: General exam patient appeared comfortable although seemed anxious Head normocephalic atraumatic Eyes sclera anicteric conjunctiva showed no pallor extraocular muscles were normal. Neck minimal jugular venous distention right carotid endarterectomy scar faint right bruit no palpable nodes Chest lungs somewhat distant air entry but appeared clear bilaterally Heart regular rhythm with a 1/6 to 2/6 systolic murmur Abdomen soft no organomegaly bowel sounds normal Extremities no clubbing cyanosis or edema Neurological no gross motor or sensory deficits Current Medications: Current Medications Sig/Bhupendra Start time Last Medication Dose Route Stop Time Status Admin Acetaminophen 650 MG .STK-MED ONE 10/23 1609 DC PO 10/23 1610 Acetaminophen 650 MG Q6P PRN 10/22 1300 AC 10/23 PO 1614 Acetaminophen 1,000 MG Q6P PRN 10/22 1300 AC IV Albuterol Sulfate 3 ML TID 10/22 2100 AC 10/24 INH 0808 Atorvastatin Calcium 20 MG 1700 10/22 1700 AC 10/23 PO 1614 Budesonide/ 2 PUF BID 10/22 1239 AC 10/23 Formoterol Fumarate INH 2029 Carvedilol 25 MG BID 10/23 2099 AC 10/23 PO 2028 Carvedilol 12.5 MG BID 10/22 2100 DC 10/23 PO 09 Clopidogrel Bisulfate 75 MG QPM 10/22 2099 AC 10/23 PO 2028 Enoxaparin Sodium 40 MG DAILY 10/22 1244 AC 10/23 SC 0914 Escitalopram Oxalate 10 MG DAILY 10/22 1239 AC 10/23 PO 0911 Furosemide 20 MG DAILY 10/24 0900 AC PO Furosemide 20 MG DAILY 10/22 1329 DC 10/23 IV 0910 Hydralazine HCl 75 MG BID 10/22 2099 AC 10/23 PO 2028 Melatonin 5 MG AT BEDTIME PRN 10/23 1345 AC PO Mirtazapine 7.5 MG QPM 10/22 2099 AC 10/23 PO 2028 Morphine Sulfate 1 MG Q2P PRN 10/22 1300 AC IV Ranolazine 500 MG 1700 10/22 1700 AC 10/23 PO 1617 Results Last 48 Hrs of Labs/Mics: Laboratory Tests 10/24/17 0640: Anion Gap 10, Estimated GFR 39 L, BUN/Creatinine Ratio 26.9 H, CBC w Diff Pending, WBC Pending, RBC Pending, Hgb Pending, Hct Pending, MCV Pending, MCH Pending, MCHC Pending, RDW Pending, Plt Count Pending, MPV Pending, Gran % Pending, Lymphocytes % Pending, Monocytes % Pending, Eosinophils % Pending, Basophils % Pending, Absolute Granulocytes Pending, Absolute Lymphocytes Pending , Absolute Monocytes Pending, Absolute Eosinophils Pending, Absolute Basophils Pending 10/23/17 0825: Anion Gap 8, Estimated GFR 47 L, BUN/Creatinine Ratio 25.5 H, CBC w Diff NO MAN DIFF REQ, RBC 3.52 L, MCV 95.1, MCH 32.8 H, MCHC 34.5, RDW 14.0, MPV 8.3, Gran % 67.7, Lymphocytes % 19.3 L, Monocytes % 10.8 H, Eosinophils % 1.5, Basophils % 0.7, Absolute Granulocytes 2.4, Absolute Lymphocytes 0.7 L, Absolute Monocytes 0.4, Absolute Eosinophils 0.1, Absolute Basophils 0 10/22/17 1845: Troponin I 0.09 10/22/17 1650: Urine Color YEL, Urine Clarity HAZY H, Urine pH 6.0, Ur Specific [place] 1.015, Urine Protein 100 H, Urine Ketones NEG, Urine Nitrite NEG, Urine Bilirubin NEG, Urine Urobilinogen 0.2, Ur Leukocyte Esterase TRACE H, Ur Microscopic SEDIMENT EXAMINED, Urine WBC 15-25 H, Ur Epithelial Cells FEW, Urine Bacteria MANY H, Urine Hemoglobin NEG, Urine Glucose NEG 10/22/17 1109: Troponin I 0.07, TSH 1.380, Free T4 1.51 Assessment/Plan Assessment/Plan In summary this 82-year-old female has a following problems 1. Transient shortness of breath possibly due to mild CHF 2. 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 History of ischemic cardiomyopathy 4. History of heart block with permanent pacemaker 5. History of peripheral arterial disease/carotid artery disease 6. Hypertension 7. History of prior pulmonary embolism with reported prior IVC filter 8. History of anemia 9. History of dizziness with ARB therapy 10. Abdominal aortic aneurysm (4.[address] scan) This patient and her is very resistant to medications claiming that most medications cause dizziness. However even after discontinued continuing the recommended medications dizziness is chronic and has persisted. She was previously tried on angiotensin receptor blocking agents, and Entresto and indicates that she read the side effects that cause dizziness and therefore stopped the medication. She is also impressed by iso coordinator educating her that all the recommended medications can cause dizziness. I would take the opportunity to initiate angiotensin receptor blocking agents into her regimen again. I would suggest candesartan 4 mg a day for 2 weeks thereafter increasing to 8 mg a day. I will also obtain orthostatic blood pressure readings on her while in hospital at least twice a day in order to rule out orthostatic hypotension. She tends to be resistant to recommendations and medications but I agree that future future options could include a biventricular device AICD, nitrates and even a retrial of Entresto. She needs to be ambulated and if stable could consider discharge Saturday or Saturday. Continue telemetry? Yes
[2017-10-24 14:33] VITALS: BP 148/62
[2017-10-24 20:45] VITALS: BP 160/118
[2017-10-24 22:08] VITALS: BP 150/88
--- NOTE | 2017-10-25 07:31 | PN- Housestaff ---
Simeon DANIELS,Costa 10/25/17 0731: Subjective Follow-up For: SOB Subjective: Saw pt at bedside this AM. No acute overnight events or complaints. I discussed extensively regarding starting back on Candesartan, Entresto and the need to follow up with r d engineer for AICD. Pt verbalized understanding of gravity of situation and need for follow up. Review of Systems Constitutional: Denies: chills, malaise. EENTM: Reports: no symptoms. Cardiovascular: Denies: chest pain. Respiratory: Reports: no symptoms. Gastrointestinal: Reports: no symptoms. Genitourinary: Reports: no symptoms. Musculoskeletal: Reports: no symptoms. Objective Last 24 Hrs of Vital Signs/I&O Vital Signs Date Time Temp Pulse Resp B/P B/P Pulse O2 O2 Flow FiO2 Mean Ox Delivery Rate 10/25 0855 95 Room Air 10/25 0830 60 150/88 10/25 0829 60 150/88 10/25 0829 60 150/88 10/25 0648 98.1 10/24 2208 98.5 60 20 150/88 94 10/24 2045 139 160/118 10/24 2036 60 160/72 10/24 2036 60 160/72 10/24 2034 94 Room Air 10/24 1610 98.5 61 148/62 10/24 1433 98.5 61 20 148/62 94 Room Air 10/24 1421 59 148/62 Intake & Output 10/25 1600 10/25 0800 10/25 0000 Intake Total 100 50 Output Total 550 500 Balance -450 -450 Intake, Oral 100 50 Output, Urine 550 500 Patient 49.13 kg Weight Physical Exam General Appearance: Alert, Oriented X3, Cooperative, No Acute Distress Skin: No Significant Lesion Neck: Supple Cardiovascular: Regular Rate, Normal S1, Normal S2, No Murmurs Lungs: Normal Air Movement Abdomen: Soft, No Tenderness Neurological: Normal Speech Current Medications: Current Medications Sig/Bhupendra Start time Last Medication Dose Route Stop Time Status Admin Acetaminophen 650 MG Q6P PRN 10/22 1300 AC 10/23 PO 1614 Acetaminophen 1,000 MG Q6P PRN 10/22 1300 AC IV Albuterol Sulfate 3 ML TID 10/22 2100 AC 10/25 INH 0825 Atorvastatin Calcium 20 MG 1700 10/22 1700 AC 10/24 PO 1610 Budesonide/ 2 PUF BID 10/22 1239 AC 10/25 Formoterol Fumarate INH 0828 Carvedilol 25 MG BID 10/23 2100 AC 10/25 PO 0829 Clopidogrel Bisulfate 75 MG QPM 10/22 2100 AC 10/24 PO 2036 Enoxaparin Sodium 40 MG DAILY 10/22 1244 AC 10/25 SC 0828 Escitalopram Oxalate 10 MG DAILY 10/22 1239 AC 10/25 PO 0829 Furosemide 20 MG DAILY 10/24 0900 AC 10/25 PO 0829 Hydralazine HCl 75 MG BID 10/22 2100 AC 10/25 PO 0829 Melatonin 5 MG AT BEDTIME PRN 10/23 1345 AC PO Mirtazapine 7.5 MG QPM 10/22 2100 AC 10/24 PO 203 Morphine Sulfate 1 MG Q2P PRN 10/22 1300 AC IV Non-Formulary 0 SEE ADMIN CRITERIA 10/24 1100 CAN Medication ANY Patient Medication 1 ED ONE ONE 10/24 1645 DC 10/24 Teaching ED 10/24 1646 1657 Ranolazine 500 MG 1700 10/22 1700 AC 10/24 PO 1610 Senna/Docusate Sodium 2 TAB DAILY PRN 10/24 2045 AC 10/24 PO 2157 Valsartan 80 MG DAILY 10/24 1230 AC 10/25 PO 0830 Valsartan 80 MG DAILY 10/24 1200 DC PO Last 24 Hrs of Lab/Grupo Results Last 24 Hrs of Labs/Mics: Laboratory Tests 10/25/17 0618: Anion Gap 8, Estimated GFR 36 L, BUN/Creatinine Ratio 31.4 H, CBC w Diff NO MAN DIFF REQ, RBC 3.43 L, MCV 96.1, MCH 32.4 H, MCHC 33.7, RDW 14.7 H, Gran % 63.2, Lymphocytes % 23.8, Monocytes % 10.7 H, Eosinophils % 1.8, Basophils % 0.5, Absolute Granulocytes 2.3, Absolute Lymphocytes 0.9 L, Absolute Monocytes 0.4, Absolute Eosinophils 0.1, Absolute Basophils 0 Assessment/Plan Assessment: This is an 82-year-old F with PMHx coronary artery disease, hypertension and hyperlipidemia who was admitted for CC hypoxic respiratory failure likely secondary to decompensation of heart failure given significantly elevated BNP and CXR with congestion. PLAN: Acute decompensated heart failure/dizzines: nml TFT, . Trops negative. No EKG changes. CTA negative. No JVD on exam today. Echo shows EF 35-40%. * She has resumed home dose of PO Lasix 20 mg * cont Dean catheter; she straight caths normally. * Strict ins and outs * Daily weights * Fluid restriction 1000 ML * Carvedilol to 25MG mg by mouth twice a day * Continue hydralazine 75 mg by mouth twice a day * TRC/ NEBulizer as needed * cardio consult rec candesartan however pharmacy only have diovan and losartan. patient thinks losartan makes her dizzy. so we gave Diovan [address] Keon machuca (cardio). Candesartan to be started on outpt basis. Depression * Continue her home dose of citalopram Incidental Finding: A solid 0.9 cm right upper lobe pulmonary nodule. According to the UPDATED 2017 Fleischner Society recommendations, a CT, PET/CT, or tissue sampling at 3 months can be considered for further follow-up. Given the presence of and additional 2.8 cm subsolid cystic/groundglass abnormality in the posterior aspect of the right upper lobe, consider the follow-up CT or PET/CT in 3 months to also evaluate this abnormality. 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 * Out pt follow up Lovenox 40 units subcutaneous daily for DVT prophylaxis FC Problem List: 1. CHF (congestive heart failure) Pain Ratin Pain Location: NONE Pain Goal: Remain pain free Pain Plan: NONE Tomorrow's Labs & Rationales: NONE Melissa Ramirez 10/25/17 1049: Attending MD Review Statement Attending Statement Attending MD Statement: examined this patient, discuss w/resident/PA/CHEMICAL PROCESS OPERATOR, agreed w/resident/PA/CHEMICAL PROCESS OPERATOR, discussed with family, reviewed EMR data (avail), discussed with nursing, discussed with case mgmt, reviewed images, amended to note Attending Assessment/Plan: Patient with cr 1.4 today. Trial of candersartan as outpatient. Patient needs to follow up with her r d engineer outpatient and compliant with her meds and regimen to improve her heart function. Reduce lasix every other day and follow up with PCP Dr Rojo in 1-2 weeks of discharge and Cardiology Dr Leonardo menendez in 2 weeks of discharge. Plan of care d./wed cardiology and patient.
[2017-10-25] MEDS ORDERED: ATACAND4 MG PO ×2 (08:12→10:46)
[2017-10-25 08:13] LABS: ABSOLUTE BASOPHIL COUNT 0 /CUMM (0.0-0.2); ABSOLUTE EOSINOPHIL COUNT 0.1 /CUMM (0.0-0.7); ABSOLUTE GRANULOCYTE CT 2.3 /CUMM (1.4-6.5); ABSOLUTE LYMPH COUNT 0.9 /CUMM (1.2-3.4); ABSOLUTE MONOCYTE COUNT 0.4 /CUMM (0.10-0.60); BASOPHIL % 0.5 % (0.0-2.0); EOSINOPHIL % 1.8 % (0-5); GRANULOCYTE % 63.2 % (42.2-75.2); MEAN CORPUSCULAR HGB 32.4 PG (27.0-31.0); MEAN CORPUSCULAR HGB CONC 33.7 G/DL (33.0-37.0); MEAN CORPUSCULAR VOLUME 96.1 FL (81.0-99.0); RBC DISTRIBUTION WIDTH 14.7 % (11.5-14.5); RED BLOOD CELL CT 3.43 /CUMM (4.20-5.40); WHITE BLOOD CELL COUNT 3.6 /CUMM (4.8-10.8)
[2017-10-25 08:30] VITALS: BP 150/88
[2017-10-25] MEDS ORDERED: FUROSEMIDE20 M1 PO (10:46)
--- NOTE | 2017-10-25 10:53 | PN- Cardiology ---
Subjective Subjective: Feels well and offers no complaints today. Objective Vital Signs and I&Os Vital Signs Date Time Temp Pulse Resp B/P B/P Pulse O2 O2 Flow FiO2 Mean Ox Delivery Rate 10/25 0855 95 Room Air 10/25 0830 60 150/88 10/25 0829 60 150/88 10/25 0829 60 150/88 10/25 0648 98.1 10/24 2208 98.5 60 20 150/88 94 10/24 204 139 160/118 10/24 203 60 160/72 10/24 2036 60 160/72 10/24 203 94 Room Air 10/24 1610 98.5 61 148/62 10/24 1433 98.5 61 20 148/62 94 Room Air 10/24 1421 59 148/62 Intake & Output 10/25 1600 10/25 0800 10/25 0000 10/24 1600 10/24 0800 10/24 0000 Intake Total 100 50 400 480 Output Total 550 500 400 650 400 Balance -450 -450 0 -650 80 Intake, Oral 100 50 400 480 Number 0 Bowel Movements Output, Urine 550 500 400 650 400 Patient 108 lb 106 lb 106 lb Weight Physical Exam: General: no apparent distress. Alert. Eyes: No obvious scleral icterus. HEENT: No jugular venous distention or abnormal jugular venous pulsations. Cardiovascular: Normal intensity S1/S2. Pacemaker noted. 1 out of 6 systolic murmur Respiratory: Lungs clear to auscultation bilaterally. Abdomen: Soft, nontender with no guarding or rebound tenderness. Musculoskeletal: No clubbing or cyanosis noted; no edema Skin: warm Neurologic: No gross focal deficits noted. Lymph: No gross lymphadenopathy. Current Medications: Current Medications Sig/Bhupendra Start time Last Medication Dose Route Stop Time Status Admin Acetaminophen 650 MG Q6P PRN 10/22 1300 AC 10/23 PO 1614 Acetaminophen 1,000 MG Q6P PRN 10/22 1300 AC IV Albuterol Sulfate 3 ML TID 10/22 2100 AC 10/25 INH 0825 Atorvastatin Calcium 20 MG 1700 10/22 1700 AC 10/24 PO 1610 Budesonide/ 2 PUF BID 10/22 1239 AC 10/25 Formoterol Fumarate INH 0828 Carvedilol 25 MG BID 10/23 2099 AC 10/25 PO 0829 Clopidogrel Bisulfate 75 MG QPM 10/22 2099 AC 10/24 PO 203 Enoxaparin Sodium 40 MG DAILY 10/22 1244 AC 10/25 SC 0828 Escitalopram Oxalate 10 MG DAILY 10/22 1239 AC 10/25 PO 0829 Furosemide 20 MG DAILY 10/24 0900 AC 10/25 PO 0829 Hydralazine HCl 75 MG BID 10/22 2100 AC 10/25 PO 08 Melatonin 5 MG AT BEDTIME PRN 10/23 1345 AC PO Mirtazapine 7.5 MG QPM 10/22 2100 AC 10/24 PO 203 Morphine Sulfate 1 MG Q2P PRN 10/22 1300 AC IV Non-Formulary 0 SEE ADMIN CRITERIA 10/24 1100 CAN Medication ANY Patient Medication 1 ED ONE ONE 10/24 1645 DC 10/24 Teaching ED 10/24 1646 1657 Ranolazine 500 MG 1700 10/22 1700 AC 10/24 PO 1610 Senna/Docusate Sodium 2 TAB DAILY PRN 10/24 2045 AC 10/24 PO 2157 Valsartan 80 MG DAILY 10/24 1230 AC 10/25 PO 0830 Valsartan 80 MG DAILY 10/24 1200 DC PO Results Last 48 Hrs of Labs/Mics: Laboratory Tests 10/25/17 0618: Anion Gap 8, Estimated GFR 36 L, BUN/Creatinine Ratio 31.4 H, CBC w Diff NO MAN DIFF REQ, RBC 3.43 L, MCV 96.1, MCH 32.4 H, MCHC 33.7, RDW 14.7 H, Gran % 63.2, Lymphocytes % 23.8, Monocytes % 10.7 H, Eosinophils % 1.8, Basophils % 0.5, Absolute Granulocytes 2.3, Absolute Lymphocytes 0.9 L, Absolute Monocytes 0.4, Absolute Eosinophils 0.1, Absolute Basophils 0 10/24/17 0640: Anion Gap 10, Estimated GFR 39 L, BUN/Creatinine Ratio 26.9 H, CBC w Diff NO MAN DIFF REQ, RBC 3.49 L, MCV 96.0, MCH 32.5 H, MCHC 33.8, RDW 14.3, Gran % 69.7, Lymphocytes % 18.4 L, Monocytes % 10.3 H, Eosinophils % 1.3, Basophils % 0.3, Absolute Granulocytes 2.5, Absolute Lymphocytes 0.7 L, Absolute Monocytes 0.4, Absolute Eosinophils 0, Absolute Basophils 0 Recent Imaging Studies: Telemetry tracings were personally reviewed and showed paced rhythm Echo Moderate reduction in left ventricular systolic function with moderate concentric hypertrophy. Segmental abnormalities consistent with Ischemic cardiomyopathy. Moderate Mitral regurgitation. Kirill Solomon M.D. (Electronically Signed) Final Date: 24 Oct 2017 07:20 Assessment/Plan Assessment/Plan 1. Transient shortness of breath possibly due to mild CHF 2. 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 History of ischemic cardiomyopathy 4. History of heart block with permanent pacemaker 5. History of peripheral arterial disease/carotid artery disease 6. Hypertension 7. History of prior pulmonary embolism with reported prior IVC filter 8. History of anemia 9. History of dizziness 10. Abdominal aortic aneurysm (4.[address] scan) No significant arrhythmias on telemetry. Doing well today and appears euvolemic. The mild increase in creatinine without hyperkalemia is most likely due to the addition of the ARB which should be continued given her decreased ejection fraction. Would switch the Lasix to 20 mg every other day. She should follow-up in our office within 1 week of discharge. Depending on the blood pressure in the future she may be a candidate for the addition of Imdur as an outpatient. Eloy Dolan MD [facility] Continue telemetry? No
== END 2017-10-25 13:02 | disposition home health service (06) | DRG 293 ==
LOC: ERH 07:05 → 1NO 10:53 → ERHI 10:53 → ENRESERV 11:50 → ENTRNSPT 13:23 → EDTRNSPTSTS 13:31 → 1NO 13:47 → CMPTRNSPT 13:48 → 1NO 10-23 07:06 → ENPENDDIS 10-25 12:17 → 1NO 10-25 13:02
PROVIDERS: Emergency Medicine; Internal Medicine; Student in an Organized Health Care Education/Training Program
DX: I11.0 Hypertensive heart disease with heart failure (principal); J44.9 Chronic obstructive pulmonary disease, unspecified; I25.5 Ischemic cardiomyopathy; I25.10 Atherosclerotic heart disease of native coronary artery without angina pectoris; I50.9 Heart failure, unspecified; F17.200 Nicotine dependence, unspecified, uncomplicated; Z95.0 Presence of cardiac pacemaker; E78.5 Hyperlipidemia, unspecified; Z88.1 Allergy status to other antibiotic agents; F41.9 Anxiety disorder, unspecified; F32.9 Major depressive disorder, single episode, unspecified; Z96.652 Presence of left artificial knee joint; Z96.642 Presence of left artificial hip joint; Z98.61 Coronary angioplasty status
CPT/HCPCS: 1NSP; 36592; 71045; 81001; 82436; 87086; 93005; 93010; 93306; 97110-GO; 97116-GO; 97161-GP; J1650; J1940; J3490